=== PATIENT | male | born 1975 | race African-American/Black ===

== ENCOUNTER 2024-04-30 13:58 | Inpatient (IN) | payer OTHER ==
[2024-04-30 15:12] VITALS: BMI 18.5
[2024-04-30] MEDS ORDERED: NICOTINE POLACRILEX 2 MG GUM BUC PRN (16:22)
[2024-04-30] MEDS ORDERED: BISMUTH SUBSALICYLATE 524 MG/30 ML PO PRN (16:22)
[2024-04-30] MEDS ORDERED: ACETAMINOPHEN 325 MG TABLET (FP) PO PRN (16:22)
[2024-04-30] MEDS ORDERED: LOPERAMIDE HCL 2 MG CAPSULE PO PRN (16:22)
[2024-04-30] MEDS ORDERED: DICYCLOMINE HCL 10 MG CAPSULE PO PRN (16:22)
[2024-04-30] MEDS ORDERED: guaiFENesin 600 MG TABLET.ER (FP) PO PRN (16:22)
[2024-04-30] MEDS ORDERED: MAGNESIUM HYDROX 2400MG/30ML ORAL SUSPENSION 30 ML CUP PO PRN (16:22)
[2024-04-30] MEDS ORDERED: MAG HYDROX/AL HYDROX/SIMETH 30 ML UNIT-DOSE CUP PO PRN (16:22)
[2024-04-30] MEDS ORDERED: POLYETHYLENE GLYCOL (HEALTHYLAX) 3350 17 GM PACKET PO PRN (16:22)
[2024-04-30] MEDS ORDERED: NICOTINE POLACRILEX 2 MG LOZENGE BC PRN (16:22)
[2024-04-30] MEDS ORDERED: ONDANSETRON *ODT* 4 MG TABLET SL PRN (16:22)
[2024-04-30] MEDS ORDERED: BENZONATATE 200 MG CAPSULE PO PRN (16:22)
[2024-04-30] MEDS ORDERED: IBUPROFEN 400 MG TABLET (FP) PO PRN (16:22)
[2024-04-30] MEDS ORDERED: BENZOCAINE/MENTHOL (CHLORASEPTIC ) LOZENGE MM PRN (16:22)
[2024-04-30] MEDS: chlordiazePOXIDE HCL 25 MG CAPSULE PO SCH (17:45)
[2024-04-30] MEDS ORDERED: chlordiazePOXIDE HCL 25 MG CAPSULE ONE (17:48)
[2024-04-30] MEDS: METHOCARBAMOL 500 MG TABLET PO PRN (18:02)
[2024-04-30] MEDS: hydrOXYzine PAMOATE 25 MG CAPSULE (FP) PO PRN (18:02)
[2024-04-30] MEDS: chlordiazePOXIDE HCL 25 MG CAPSULE PO PRN (20:44)
[2024-04-30] MEDS: IBUPROFEN 600 MG TABLET (FP) PO PRN (22:52)
[2024-04-30] MEDS: THIAMINE 100 MG TABLET PO SCH (22:53)
[2024-04-30] MEDS: MELATONIN 5 MG TABLETS PO SCH (22:53)
[2024-05-01] MEDS: PRENATAL VITAMINS W/ FOLIC ACID TABLET (FP) PO SCH (10:34)
[2024-05-01 12:09] LABS: HEMATOCRIT 39.3 % (35.4-49); HEMOGLOBIN 13.5 GM/dL (11.7-16.9); MCH 35.7 pg (25.7-33.7); MCHC 34.4 g/dl (32.0-35.9); MEAN CELL VOLUME 103.6 fl (80-96); MEAN PLT VOLUME 10.5 fl (7.5-11.1); PLATELET COUNT 48 10^3/uL (134-434); RBC 3.79 M/mm3 (4.00-5.60); RDW 12.7 % (11.9-15.9)
[2024-05-01 13:13] LABS: CHLORIDE 100 mmol/L (98-107); POTASSIUM 3.6 mmol/L (3.5-5.1); SODIUM 138 mmol/L (136-145)
[2024-05-01 13:24] LABS: CALCIUM 8.9 mg/dL (8.5-10.1)
[2024-05-01 13:25] LABS: ALBUMIN 2.9 g/dl (3.4-5.0); ANION GAP 9 mmol/L (4-13); BLOOD UREA NITROGEN 4.1 mg/dL (7-18); CO2 29 mmol/L (21-32); GLUCOSE,RANDOM 84 mg/dL (74-106)
[2024-05-01 13:28] LABS: CREATININE 0.6 mg/dL (0.55-1.3); SGOT/AST 124 U/L (15-37); SGPT/ALT 55 U/L (13-61)
[2024-05-01 13:30] LABS: BILIRUBIN,TOTAL 1.8 mg/dL (0.2-1); TOT PROT 6.9 g/dl (6.4-8.2)
[2024-05-01 13:31] LABS: ALK PHOS 196 U/L (45-117)
[2024-05-01] MEDS: GABAPENTIN 100 MG CAPSULE PO SCH (13:50)
[2024-05-02 03:41] VITALS: BP 115/77; PULSE 67; RESP 16; TEMP 99.1
[2024-05-02] MEDS: chlordiazePOXIDE HCL 25 MG CAPSULE PO SCH (05:30)
[2024-05-03] MEDS ORDERED: chlordiazePOXIDE HCL 10 MG CAPSULE PO PRN
[2024-05-03] MEDS ORDERED: chlordiazePOXIDE HCL 10 MG CAPSULE PO SCH (05:00)
[2024-05-04] MEDS ORDERED: chlordiazePOXIDE HCL 10 MG CAPSULE PO SCH (05:00)
[2024-05-05] MEDS ORDERED: chlordiazePOXIDE HCL 10 MG CAPSULE PO ONE (05:00)
== END 2024-05-02 07:54 | disposition short-term general hospital (02) | DRG 775 ==
LOC: YASAS 13:58 → Y3N 17:35
PROVIDERS: ADMIT Allergy & Immunology; ATTEND Surgery
PROC: HZ2ZZZZ Detoxification Services for Substance Abuse Treatment (ICD-10-PCS; principal; 2024-04-30)
DX: F10.230 Alcohol dependence with withdrawal, uncomplicated (principal); F17.210 Nicotine dependence, cigarettes, uncomplicated; R55 Syncope and collapse
CPT/HCPCS: 36415; 80053; 80307; 85027; 86780; 93005; 93010

== ENCOUNTER 2024-05-02 04:00 | Inpatient (IN) | payer OTHER ==
[2024-05-02 04:57] LABS: BASO % 0.4 % (0-2.0); EOS % 0.3 % (0-4.5); HEMATOCRIT 39.1 % (35.4-49); HEMOGLOBIN 13.5 GM/dL (11.7-16.9); LYMPH % 15.7 % (8-40); MCH 35.7 pg (25.7-33.7); MCHC 34.6 g/dl (32.0-35.9); MEAN CELL VOLUME 103.1 fl (80-96); MEAN PLT VOLUME 9.5 fl (7.5-11.1); MONO % 15.7 % (3.8-10.2); NEUT % 67.9 % (42.8-82.8); PLATELET COUNT 43 10^3/uL (134-434); RBC 3.79 M/mm3 (4.00-5.60); RDW 12.5 % (11.9-15.9); WHITE BLOOD COUNT 5.2 K/mm3 (4.0-10.0)
[2024-05-02 05:14] LABS: CHLORIDE 100 mmol/L (98-107); POTASSIUM 3.4 mmol/L (3.5-5.1); SODIUM 138 mmol/L (136-145)
[2024-05-02 05:16] LABS: INR 1.21 (0.83-1.09); PROTHROMBIN TIME (PATIENT) 13.6 SEC (9.7-13.0)
[2024-05-02 05:17] LABS: ALBUMIN 2.7 g/dl (3.4-5.0); ANION GAP 8 mmol/L (4-13); BLOOD UREA NITROGEN 5.3 mg/dL (7-18); CALCIUM 8.7 mg/dL (8.5-10.1); CO2 30 mmol/L (21-32); GLUCOSE,RANDOM 104 mg/dL (74-106)
[2024-05-02 05:18] LABS: ACTIVATED PTT 36.3 SECONDS (25.2-36.5)
[2024-05-02 05:20] LABS: CREATININE 0.6 mg/dL (0.55-1.3); SGOT/AST 66 U/L (15-37); SGPT/ALT 39 U/L (13-61)
[2024-05-02 05:21] LABS: CHOLESTEROL 124 mg/dL (50-200); TOT PROT 6.6 g/dl (6.4-8.2)
[2024-05-02 05:22] LABS: BILIRUBIN,TOTAL 0.9 mg/dL (0.2-1); HDL CHOLESTEROL 92 mg/dL (40-60); LDL CHOLESTEROL (ONLY SJRH) 21 mg/dL (5-100)
[2024-05-02 05:38] LABS: ALK PHOS 161 U/L (45-117)
[2024-05-02 06:40] LABS: PH,URINE 7.5 (5.0-8.0); URINE APPEARANCE CLEAR; URINE BILIRUBIN NEGATIVE (NEGATIVE); URINE COLOR YELLOW; URINE GLUCOSE (UA) TRACE (NEGATIVE); URINE KETONE NEGATIVE (NEGATIVE); URINE LEUK ESTERASE NEGATIVE (NEGATIVE); URINE NITRITE NEGATIVE (NEGATIVE); URINE PROTEIN NEGATIVE (NEGATIVE)
[2024-05-02] MEDS: THIAMINE HCL 200 MG/2 ML VIAL IVPB SCH (09:02)
[2024-05-02] MEDS: FOLIC ACID 1 MG TABLET (FP) PO ONE (09:02)
[2024-05-02] MEDS: ENOXAPARIN NA (PORCINE) 40 MG/0.4 ML DISP.SYRIN SQ SCH (09:02)
[2024-05-02] MEDS: POTASSIUM CHLORIDE ORAL LIQUID 20 MEQ/15 ML PO ONE (09:02)
[2024-05-02 09:47] LABS: COCAINE, UR NEGATIVE (NEGATIVE); METHADONE, UR NEGATIVE (NEGATIVE); URINE AMPHETAMINES NEGATIVE (NEGATIVE)
[2024-05-02] MEDS ORDERED: ACETAMINOPHEN INJECTION 100 ML ONE (09:48)
[2024-05-02 09:49] LABS: PHENCYCLIDINE,URINE NEGATIVE (NEGATIVE)
[2024-05-02] MEDS ORDERED: MAG HYDROX/AL HYDROX/SIMETH 30 ML UNIT-DOSE CUP ONE (09:49)
[2024-05-02] MEDS ORDERED: FAMOTIDINE 20 MG/50 ML IVPB 20 MG/50 ML MG IVPB ONE (09:49)
[2024-05-02] MEDS ORDERED: ONDANSETRON 4 MG/2 ML VIAL ONE (09:49)
[2024-05-02 09:52] LABS: OPIATES, URI NEGATIVE (NEGATIVE); URINE BARBITURATES NEGATIVE (NEGATIVE)
[2024-05-02 10:00] LABS: URINE BENZODIAZEPINES POSITIVE (NEGATIVE)
[2024-05-02] MEDS: chlordiazePOXIDE HCL 25 MG CAPSULE PO SCH (12:02)
[2024-05-03] MEDS ORDERED: chlordiazePOXIDE HCL 10 MG CAPSULE PO SCH (11:00)
[2024-05-03] MEDS: FOLIC ACID 1 MG TABLET (FP) PO SCH (11:15)
[2024-05-03] MEDS: chlordiazePOXIDE HCL 25 MG CAPSULE PO SCH (11:15)
[2024-05-03] MEDS: POTASSIUM CHLORIDE ORAL LIQUID 20 MEQ/15 ML PO ONE (18:02)
[2024-05-04 07:56] LABS: HEMATOCRIT 37.1 % (35.4-49); HEMOGLOBIN 12.7 GM/dL (11.7-16.9); MCH 35.5 pg (25.7-33.7); MCHC 34.1 g/dl (32.0-35.9); MEAN CELL VOLUME 104.1 fl (80-96); MEAN PLT VOLUME 10.3 fl (7.5-11.1); PLATELET COUNT 73 10^3/uL (134-434); RBC 3.56 M/mm3 (4.00-5.60); RDW 12.2 % (11.9-15.9); WHITE BLOOD COUNT 3.2 K/mm3 (4.0-10.0)
[2024-05-04 08:10] LABS: POTASSIUM 3.5 mmol/L (3.5-5.1)
[2024-05-04 08:14] LABS: CALCIUM 8.9 mg/dL (8.5-10.1)
[2024-05-04 08:15] LABS: ALBUMIN 2.6 g/dl (3.4-5.0); BLOOD UREA NITROGEN 5.3 mg/dL (7-18)
[2024-05-04 08:18] LABS: CREATININE 0.5 mg/dL (0.55-1.3)
[2024-05-04 08:19] LABS: BILIRUBIN,TOTAL 0.6 mg/dL (0.2-1); TOT PROT 6.3 g/dl (6.4-8.2)
[2024-05-04] MEDS ORDERED: chlordiazePOXIDE HCL 10 MG CAPSULE PO SCH (11:00)
[2024-05-04] MEDS ORDERED: chlordiazePOXIDE HCL 25 MG CAPSULE PO PRN (19:15)
[2024-05-05] MEDS ORDERED: chlordiazePOXIDE HCL 10 MG CAPSULE PO PRN
[2024-05-05 08:26] LABS: HEMOGLOBIN 12.7 GM/dL (11.7-16.9); MCH 36.5 pg (25.7-33.7); MCHC 35.2 g/dl (32.0-35.9); MEAN CELL VOLUME 103.8 fl (80-96); PLATELET COUNT 86 10^3/uL (134-434); POTASSIUM 4.1 mmol/L (3.5-5.1); RBC 3.47 M/mm3 (4.00-5.60); RDW 12.1 % (11.9-15.9)
[2024-05-05 08:44] LABS: ALBUMIN 2.7 g/dl (3.4-5.0)
[2024-05-05 08:46] LABS: BLOOD UREA NITROGEN 9.5 mg/dL (7-18)
[2024-05-05 08:47] LABS: CREATININE 0.6 mg/dL (0.55-1.3)
[2024-05-05 08:49] LABS: BILIRUBIN,TOTAL 0.3 mg/dL (0.2-1); TOT PROT 6.5 g/dl (6.4-8.2)
[2024-05-05] MEDS: THIAMINE 100 MG TABLET PO SCH (09:12)
[2024-05-05] MEDS ORDERED: chlordiazePOXIDE HCL 10 MG CAPSULE PO ONE (11:00)
[2024-05-05] MEDS: chlordiazePOXIDE HCL 10 MG CAPSULE PO PRN (12:49)
[2024-05-07 05:42] VITALS: TEMP 98.1
[2024-05-07 08:49] LABS: POTASSIUM 3.8 mmol/L (3.5-5.1)
[2024-05-07 08:52] LABS: CALCIUM 9.3 mg/dL (8.5-10.1)
[2024-05-07 08:53] LABS: BLOOD UREA NITROGEN 12.5 mg/dL (7-18)
[2024-05-07 08:55] LABS: HEMATOCRIT 37.3 % (35.4-49); HEMOGLOBIN 12.4 GM/dL (11.7-16.9); MCH 35.4 pg (25.7-33.7); MCHC 33.4 g/dl (32.0-35.9); MEAN PLT VOLUME 9.8 fl (7.5-11.1); PLATELET COUNT 145 10^3/uL (134-434); RBC 3.52 M/mm3 (4.00-5.60); RDW 12.4 % (11.9-15.9)
[2024-05-07 08:56] LABS: CREATININE 0.6 mg/dL (0.55-1.3)
[2024-05-07 11:12] VITALS: BP 97/65; PULSE 80; RESP 16
[2024-05-07 22:45] VITALS: BMI 15.2
== END 2024-05-07 15:00 | disposition home or self-care (01) | DRG 775 ==
LOC: JER 04:00 → JERBED 08:56 → J4W 09:56 → OBSVTOIN 05-03 09:09
PROVIDERS: ADMIT Internal Medicine; ATTEND Internal Medicine
PROC: HZ2ZZZZ Detoxification Services for Substance Abuse Treatment (ICD-10-PCS; principal; 2024-05-03)
DX: F10.239 Alcohol dependence with withdrawal, unspecified (principal); R55 Syncope and collapse
CPT/HCPCS: 36415; 70450-TC; 70551-TC; 71045-TC-FY; 72170-TC-FY; 80048; 80053; 80061; 80307; 81003; 82550; 82607; 82746; 82962; 83036; 84436; 84443; 84484; 85025; 85027; 85610; 85730; 86850; 86900; 86901; 93005; 93010; 93306-TC; 93880-TC; 97116-GP; 97162-GP; 99285-25; G0378